=== PATIENT | female | born 1985 | race Caucasian/White ===

== ENCOUNTER 2019-07-21 16:20 | Emergency (ER) | payer OTHER ==
[~2019-07-21] VITALS: Ht 162.6 cm; Wt 59.0 kg
[2019-07-21 16:36] VITALS: BP 119/98
--- NOTE | 2019-07-21 17:09 | NUR ---
Patient discharged to home in stable condition. Written and verbal after care instructions given. Patient verbalizes understanding of instruction.
== END 2019-07-21 17:11 | disposition home or self-care (01) ==
LOC: ER 16:23
DX: S30.860A Insect bite (nonvenomous) of lower back and pelvis, initial encounter (principal); W57.XXXA Bitten or stung by nonvenomous insect and other nonvenomous arthropods, initial encounter; Y93.89 Activity, other specified; Y92.89 Other specified places as the place of occurrence of the external cause; Y99.8 Other external cause status